=== PATIENT | female | born 1985 | race Hispanic/Latino ===

== ENCOUNTER 2016-11-10 16:24 | Emergency (ER) | payer OTHER ==
[~2016-11-10] VITALS: Ht 165.1 cm; Wt 92.9 kg
[2016-11-10 18:01] LABS: ADD MIUA? YES; BILIRUBIN NEGATIVE; BLOOD MODERATE; COLOR YELLOW ((YELLOW)); GLUCOSE (STRIP) NEGATIVE; KETONES NEGATIVE; LEUKOCYTES NEGATIVE; NITRITE NEGATIVE; PROTEIN (STRIP) NEGATIVE; SPECIFIC GRAVITY 1.025 (1.000-1.030); UROBILINOGEN 0.2 MG/DL (0.2-1.0)
[2016-11-10 18:14] LABS: HEMATOCRIT 32.1 % (36.0-46.0); MCH 27.3 PG (29.0-34.0); MCHC 33.6 G/DL (30.0-36.0); MCV 81.1 FL (83-99); MEAN PLAT.VOLUME 10.6 uM^3 (9.5-12.4); PLATELET COUNT 222 K/uL (156-360); RBC DIS.WIDTH-CV 13.7 % (11.8-14.6); RBC DIS.WIDTH-SD 39.7 % (39-53); RED BLOOD COUNT 3.96 M/uL (3.80-5.20); WHITE BLOOD COUNT 5.3 K/uL (4.1-10.2)
[2016-11-10 18:24] LABS: CHLORIDE 106 mEq/L (99-109); POTASSIUM 3.6 mEq/L (3.7-5.4); SODIUM 139 mEq/L (136-147)
[2016-11-10 18:26] LABS: GLUCOSE 85 mg/dL (70-99)
[2016-11-10 18:27] LABS: ANION GAP 13 MEQ/L (2-14)
[2016-11-10 18:28] LABS: TOTAL BILIRUBIN 0.2 mg/dL (0.0-1.0)
[2016-11-10 18:29] LABS: ALKALINE PHOSPHATASE 45 IU/L (3-129)
[2016-11-10 18:30] LABS: GFR ESTIMATE (CALCULATED) > 59 mL/min/
[2016-11-10 18:31] LABS: UREA NITROGEN (BUN) 7 mg/dL (9-23)
[2016-11-10 18:33] LABS: WHITE BLOOD CELLS 0-5 /HPF (0-5)
[2016-11-10 18:34] LABS: BACTERIA 1+ /HPF; CASTS NONE SEEN /LPF; CRYSTALS NONE SEEN; EPITHELIAL CELLS 1+ /HPF; MUCUS 3+ /LPF; UCUL ADDED? NO
[2016-11-10] MEDS ORDERED: KEFLEX500 MG PO (20:30)
[2016-11-10 20:43] VITALS: BP 103/59
== END 2016-11-10 20:44 | disposition home or self-care (01) ==
LOC: EME 16:24
PROVIDERS: Physician Assistant
DX: O23.12 Infections of bladder in pregnancy, second trimester (principal); R19.7 Diarrhea, unspecified; Z3A.16 16 weeks gestation of pregnancy
CPT/HCPCS: 80053; 81003; 84702; 85027; 87077; 87086; 87186; 99281; 99284; J7030